=== PATIENT | female | born 1945 | race Caucasian/White ===

== ENCOUNTER 2021-12-15 10:45 | Outpatient (RCR) | payer MEDICARE, BC, SELFPAY | END 2021-12-27 23:59 | disposition home or self-care (01) | LOC: CCIC 10:45 | PROVIDERS: Visit Provider Internal Medicine Hematology & Oncology | DX: C50.911 Malignant neoplasm of unspecified site of right female breast (principal); Z17.0 Estrogen receptor positive status [ER+]; D05.12 Intraductal carcinoma in situ of left breast; Z79.811 Long term (current) use of aromatase inhibitors; M85.80 Other specified disorders of bone density and structure, unspecified site; Z92.3 Personal history of irradiation | CPT/HCPCS: 99212; 99213; 99214 ==